=== PATIENT | female | born 2000 | race Caucasian/White ===

== ENCOUNTER → 2018-03-05 | Outpatient (CLI) | payer BC | LOC: BMCIMAGING 09:13 | PROVIDERS: ATTEND Orthopaedic Surgery | DX: Z87.81 Personal history of (healed) traumatic fracture (principal) ==

== ENCOUNTER 2018-12-13 12:23 | Emergency (ER) | payer BC ==
--- NOTE | 2018-12-13 13:28 | EDPHY ---
H & P Stated Complaint: Headfirst over fence yesterday. Possible LOC. Headache Time Seen by Provider: 12/13/18 13:28 - Personal History LMP (Females 10-55): IUD In Place Current Tetanus Diphtheria and Acellular Pertussis (TDAP): Yes - Medical/Surgical History Hx Asthma: No Hx Chronic Respiratory Disease: No Hx Diabetes: No Hx Cardiac Disease: No Hx Renal Disease: No Hx Cirrhosis: No Hx Alcoholism: No Hx HIV/AIDS: No Hx Splenectomy or Spleen Trauma: No Other PMH: concussion - Social History Smoking Status: Never smoked Constitutional: Initial Vital Signs Temperature (C) 37 C 12/13/18 12:35 Heart Rate 86 12/13/18 12:35 Respiratory Rate 16 12/13/18 12:35 Blood Pressure 128/70 H 12/13/18 12:35 O2 Sat (%) 97 12/13/18 12:35 O2 Delivery Mode Room Air Allergies/Adverse Reactions: No Known Allergies Allergy (Verified 12/13/18 12:38) Home Medications: Medication Instructions Recorded Ibuprofen [Motrin] 800 mg PO Q8 #20 tab 12/13/18 Ondansetron Odt [Zofran Odt 4 mg 4 mg PO Q4 PRN #10 tab 12/13/18 (RX)] Prozac 10 MG (*) 12/13/18 Medical Decision Making ED Course/Re-evaluation: CHIEF COMPLAINT: Hit head, headache HISTORY OF PRESENT ILLNESS: The patient is a 18 y/o female complaining of a headache, nausea, and light sensitivity secondary to falling off a fence yesterday. She was lying horizontal on a 6 foot fence, while mildly intoxicated, when she fell around 7 feet and landed face first. Since the fall she has been unable to remember the events right before or directly after the fall. Her friends woke her up every 3 hours as they were concerned about the head injury. Today she woke up with a headache and was sensitive to light. She also "doesn't feel normal and out of it ". She denies taking medication for her symptoms. No fever, shortness of breath , chest pain, abdominal pain, urinary or bowel complaints, numbness, paresthesias. REVIEW OF SYSTEMS: A comprehensive 10 system review of systems is otherwise negative aside from elements mentioned in the history of present illness and medical decision making. PHYSICAL EXAM: HR, BP, O2 Sat, RR. Temp noted General Appearance: Alert, well hydrated, appropriate, and non-toxic appearing. Head: Small contusion on forehead. Eyes: Pupils equal, round, reactive to light and accommodation, EOMI, no trauma , no injection. Ears: Clear bilaterally, no perforation, normal landmarks. No hemotympanum. Nose: Atraumatic, no rhinorrhea, clear. Throat: There is no erythema or exudates, no lesions, normal tonsils, mucus membranes moist. Neck: Supple, 2+ carotid upstroke, nontender, no lymphadenopathy. Respiratory: No retractions, no distress, no wheezes, and no accessory muscle use. Lungs are clear to auscultation bilaterally. Cardiovascular: Regular rate and rhythm, no murmurs, rubs, or gallops. Bilateral carotid, radial, dorsalis pedis, and posterior tibial pulses intact. Good capillary refill all extremities. Gastrointestinal: Abdomen is soft, nontender, non-distended, no masses, no rebound, no guarding, no peritoneal signs. Musculoskeletal: Normal active ROM of all extremities, atraumatic. Neurological: Alert, appropriate, and interactive. The patient has normal DTRs and non-focal cranial nerves, motor, sensory, and cerebellar exam. Skin: No rashes, good turgor, no nodules on palpation. Past medical history: Concussion Past surgical history: Denies Family history: Denies Social history: Friends at bedside, student at , originally from [place] DIAGNOSTICS/PROCEDURES/CRITICAL CARE TIME: Not indicated. DIFFERENTIAL DIAGNOSIS: The differential diagnosis for the patient's head injury included but was not limited to concussion, skull fracture, intra-parenchymal contusion, subarachnoid , subdural and epidural hematoma. MEDICAL DECISION MAKING: The patient is a 18 y/o female presenting with a headache, nausea, and light sensitivity secondary to falling off a fence yesterday. On exam she has bad photophobia and a contusion on her forehead. She does not have hemotympanum. I have thoroughly discussed the risks and benefits associated with a head CT. The patient politely declines the CT as she would like to see how she feels in the next several days. I have advised her to follow up with Dr. Scott. I have also prescribed her Zofran and Motrin; her first dose was given prior to discharge. Return precautions provided; patient is comfortable with this plan. - Data Points Medications Given: Discontinued Medications Ibuprofen (Motrin) 800 mg PO EDNOW ONE Stop: 12/13/18 13:38 Last Admin: 12/13/18 13:43 Dose: 800 mg Ondansetron HCl (Zofran Odt) 4 mg PO EDNOW ONE Stop: 12/13/18 13:38 Last Admin: 12/13/18 13:43 Dose: 4 mg Departure - Departure Disposition: Home, Routine, Self-Care Clinical Impression: Concussion Qualifiers: Encounter type: initial encounter Loss of consciousness presence/duration: without LOC Qualified Code(s): S06.0X0A - Concussion without loss of consciousness, initial encounter Head injury Qualifiers: Encounter type: initial encounter Qualified Code(s): S09.90XA - Unspecified injury of head, initial encounter Condition: Good Instructions: Concussion (ED), Head Injury (ED) Additional Instructions: 1. Apply ice to sore areas and take 600mg ibuprofen every 6-8 hours or 650mg Tylenol every 4-6 hours for pain for the next few days. Take Zofran for nausea. 2. Cognitive rest while symptoms are present. Avoid screen time including TV, phones, and computers until symptoms improve. 3. Physical rest while symptoms are present. You can do a light aerobic activity. Avoid any activities that could put you at further risk for a head injury until your symptoms resolve including contact sports, bicycling, etc. This may be 2 weeks or longer. 4. Follow up with Dr. Scott, head injury specialist, for unimproved symptoms over the next 10-14 days. It's not uncommon to experience fatigue, mood swings, and difficulty concentrating with concussions. 5. Return to the ED for severe headache, weakness or numbness on one side of your body, vision changes, or other worsening of condition. [facility] [[facility]] - As per Instructions Theresa Scott MD [Medical Doctor] - As per Instructions Stand Alone Forms: School Excuse Prescriptions: Ibuprofen [Motrin] 800 mg PO Q8 #20 tab Ondansetron Odt [Zofran Odt 4 mg (RX)] 4 mg PO Q4 PRN #10 tab PRN Reason: Nausea/Vomiting, Use 1st Report Scribed for: Favian Dee Report Scribed by: Haydee Simons Date of Report: 12/13/18 Time of Report: 14:03
[2018-12-13] MEDS ORDERED: ONDANSETRON DISINTEGRATING 4 MG TAB PO ONE (13:37)
[2018-12-13] MEDS ORDERED: IBUPROFEN 800 MG TAB PO ONE (13:37)
[2018-12-13 13:49] VITALS: BP 115/77
== END 2018-12-13 13:49 | disposition home or self-care (01) ==
DX: S06.0X0A Concussion without loss of consciousness, initial encounter (principal); W17.89XA Other fall from one level to another, initial encounter; Y92.9 Unspecified place or not applicable; Y99.9 Unspecified external cause status; Y93.9 Activity, unspecified

== ENCOUNTER 2019-01-31 02:21 | Emergency (ER) | payer BC ==
[2019-01-31] MEDS ORDERED: ONDANSETRON 4 MG/2 ML VIAL IVP ONE ×2 (02:33→06:09)
[2019-01-31] MEDS ORDERED: NS 1,000 ML IV ONE ×3 (02:33→05:01)
--- NOTE | 2019-01-31 02:33 | EDPHY ---
H & P Stated Complaint: NVD Time Seen by Provider: 01/31/19 02:33 HPI/ROS: HPI CHIEF COMPLAINT: Nausea vomiting diarrhea. HISTORY OF PRESENT ILLNESS: This is a 18-year-old female, she is otherwise healthy, denies any significant medical history she presents emergency room nausea vomiting diarrhea. She describes the diarrhea as watery and yellow, as well as vomiting mainly water and the food that she ate earlier today she states she had a eggs, cheeseburger, and Frisian fries. This was around 4:00 a.m. In the afternoon. Around 9:00 p.m. She began feeling ill. With abdominal cramping nausea vomiting and diarrhea. She denies any blood. Complains of crampy abdominal pain. Past Medical History: Denies significant medical history Past Surgical History: Denies significant surgical history Social History: Denies drugs alcohol tobacco. Family History: Noncontributory ROS REVIEW OF SYSTEMS: 10 Systems were reviewed and negative with the exception of the elements mentioned in the history of present illness. Exam Constitutional nontoxic, triage nursing summary reviewed, vital signs reviewed , awake/alert. Eyes normal conjunctivae and sclera, EOMI, PERRLA. HENT normal inspection, atraumatic, moist mucus membranes, no epistaxis, neck supple/ no meningismus, no raccoon eyes. Respiratory clear to auscultation bilaterally, normal breath sounds, no respiratory distress, no wheezing. Cardiovascular rate normal, regular rhythm, no murmur, no edema, distal pulses normal. Gastrointestinal soft, non-tender, no rebound, no guarding, normal bowel sounds, no distension, no pulsatile mass. Genitourinary no CVA tenderness. Musculoskeletal no midline vertebral tenderness, full range of motion, no calf swelling, no tenderness of extremities, no meningismus, good pulses, neurovascularly intact. Skin pink, warm, & dry, no rash, skin atraumatic. Neurologic awake, alert and oriented x 3, AAOx3, moves all 4 extremities equally, motor intact, sensory intact, CN II-XII intact, normal cerebellar, normal vision, normal speech. Psychiatric normal mood/affect. Heme/Lymph/Immune no lymphadenopathy. Differential Diagnosis: Differential diagnosis includes but is not limited to and in no particular order: Bowel obstruction, appendicitis, gallbladder disease, diverticulitis, colitis, enteritis, perforated viscus, gastritis, GERD , esophagitis, urinary tract infection, pyelonephritis, kidney stones Medical Decision Making: Plan for this patient IV establishment IV fluid bolus 2 L normal saline, IV Zofran 4 mg for nausea, IV Pepcid 20 mg for GI upset, basic labs, and re-evaluate. Re-evaluation: Patient re-evaluated at 5:02 a.m. Patient complaining of worsening abdominal pain. Will give her 3rd L fluid. She does feel much better in terms of nausea there Zofran and Pepcid. Given ongoing abdominal pain will plan for CT scan abdomen pelvis with IV contrast. CT scan abdomen pelvis with IV contrast faxed me by direct Radiology at time 6: 20 a.m., possible cholecystitis correlate with right upper quadrant ultrasound is recommended Additionally CT scan shows gastroenteritis or jejunitis are not excluded but appearance could be artifactual due to lack of distention of the structure CT scan shows possible enteritis. Given her nausea vomiting diarrhea this most likely possible. However gallbladder abnormal and CT scan will proceed with ultrasound. Ultrasound of the right upper quadrant shows no acute inflammatory process. 0738: Patient is feeling much better. She reports to me her abdomen does not hurt her. She is feeling much better. On re-examination her abdomen is soft nontender. CT scan reviewed shows enteritis gastroenteritis. Ultrasound reveals no acute cholecystitis. Labs reviewed Patient received IV fluids here nausea medicine pain medicine much improved. I did offer her admission to the hospital for further evaluation however she has declined this and wants to go home. She reports to me her abdomen feels much better. Patient did p.o. Challenge well. Patient is requesting discharge. I did offer admission fall observation today however she has declined. She wants to go home. We discussed return precautions return if worsening abdominal pain, fever, vomiting. Source: Patient, EMS - Personal History LMP (Females 10-55): IUD In Place Current Tetanus Diphtheria and Acellular Pertussis (TDAP): Yes - Medical/Surgical History Hx Asthma: No Hx Chronic Respiratory Disease: No Hx Diabetes: No Hx Cardiac Disease: No Hx Renal Disease: No Hx Cirrhosis: No Hx Alcoholism: No Hx HIV/AIDS: No Hx Splenectomy or Spleen Trauma: No Other PMH: concussion, broken R leg, dislocated shoulder - Social History Smoking Status: Never smoked Constitutional: Initial Vital Signs Temperature (C) 36.3 C 01/31/19 02:27 Heart Rate 81 01/31/19 02:27 Respiratory Rate 16 01/31/19 02:27 Blood Pressure 130/87 H 01/31/19 02:27 O2 Sat (%) 100 01/31/19 02:27 O2 Delivery Mode Room Air Allergies/Adverse Reactions: No Known Allergies Allergy (Verified 01/31/19 07:49) Home Medications: Medication Instructions Recorded No Known Home Meds 1 each MISC DAILY 01/31/19 Ondansetron HCl [Zofran] 4 mg PO Q4-6PRN PRN #10 tablet 01/31/19 Medical Decision Making - Data Points Laboratory Results: Laboratory Results 01/31/19 02:35 01/31/19 03:15 Medications Given: Discontinued Medications Famotidine (Pepcid) 20 mg IVP EDNOW ONE Stop: 01/31/19 02:38 Last Admin: 01/31/19 02:41 Dose: 20 mg Hydromorphone HCl (Dilaudid) 0.5 mg IVP EDNOW ONE Stop: 01/31/19 06:47 Last Admin: 01/31/19 06:49 Dose: 0.5 mg Sodium Chloride (Ns) 1,000 mls @ 0 mls/hr IV EDNOW ONE; Wide Open PRN Reason: Protocol Stop: 01/31/19 02:34 Last Admin: 01/31/19 02:36 Dose: 1,000 mls Sodium Chloride (Ns) 1,000 mls @ 0 mls/hr IV EDNOW ONE; Wide Open PRN Reason: Protocol Stop: 01/31/19 02:34 Last Admin: 01/31/19 02:36 Dose: 1,000 mls Sodium Chloride (Ns) 1,000 mls @ 0 mls/hr IV ONCE ONE PRN Reason: Wide Open Stop: 01/31/19 05:02 Last Admin: 01/31/19 05:05 Dose: 1,000 mls Ketorolac Tromethamine (Toradol) 15 mg IVP EDNOW ONE Stop: 01/31/19 03:39 Last Admin: 01/31/19 03:42 Dose: 15 mg Ondansetron HCl (Zofran) 4 mg IVP EDNOW ONE Stop: 01/31/19 02:34 Last Admin: 01/31/19 02:36 Dose: 4 mg Ondansetron HCl (Zofran) 4 mg IVP EDNOW ONE Stop: 01/31/19 06:10 Last Admin: 01/31/19 06:10 Dose: 4 mg Promethazine HCl (Phenergan) 6.25 mg IVP ONCE ONE Stop: 01/31/19 06:52 Last Admin: 01/31/19 06:54 Dose: 6.25 mg Departure - Departure Disposition: Home, Routine, Self-Care Clinical Impression: Abdominal pain Qualifiers: Abdominal location: unspecified location Qualified Code(s): R10.9 - Unspecified abdominal pain Condition: Good Instructions: Dehydration (ED), Gastroenteritis (ED), Abdominal Pain (ED) Additional Instructions: 1. Hitchcock diet over the next 24 to 48 hours, no spicy, fatty or greasy food. 2. Return to the Emergency Room if you have worsening symptoms, this includes, vomiting, fever, abdominal pain or not doing well. 3. Advance your diet slowly. Referrals: Patient,NotPresent [Unknown] - As per Instructions [facility] [Cl[facility]] - As per Instructions Prescriptions: Ondansetron HCl [Zofran] 4 mg PO Q4-6PRN PRN #10 tablet PRN Reason: Nausea/Vomiting, Use 1st
[2019-01-31] MEDS ORDERED: FAMOTIDINE 20 MG/2 ML SDV IVP ONE (02:37)
[2019-01-31 02:42] LABS: PLATELET COUNT 193 10^3/uL (150-400)
[2019-01-31] MEDS ORDERED: KETOROLAC 15 MG/1 ML SDV IVP ONE (03:38)
[2019-01-31] MEDS ORDERED: IOPAMIDOL (ISOVUE-300) 100 ML BTL ONE (05:37)
[2019-01-31] MEDS ORDERED: ONDANSETRON 4 MG/2 ML VIAL ONE (06:07)
[2019-01-31] MEDS ORDERED: HYDROmorphONE/DILAUDID 2 MG/ML INJ IVP ONE (06:46)
[2019-01-31] MEDS ORDERED: HYDROmorphONE/DILAUDID 1 MG/ML INJ ONE (06:47)
[2019-01-31] MEDS ORDERED: PROMETHAZINE HCL 25 MG/ML INJ IVP ONE (06:51)
[2019-01-31] MEDS ORDERED: PROMETHAZINE HCL 25 MG/ML INJ ONE (06:52)
[2019-01-31 07:34] VITALS: BP 110/90
== END 2019-01-31 08:05 | disposition home or self-care (01) ==
DX: K52.9 Noninfective gastroenteritis and colitis, unspecified (principal); E86.9 Volume depletion, unspecified
CPT/HCPCS: 96374; J1170; J1885; J2405; J2550; Q9967